=== PATIENT | female | born 1945 | race Caucasian/White ===

== ENCOUNTER 2018-07-28 07:59 | Day surgery (SDC) | payer MEDICARE, OTHER ==
[~2018-07-28] VITALS: Ht 165.1 cm; Wt 80.0 kg
[~2018-07-28 07:59] MED LIST: LACT1CAP35 PO; MULT1TAB60 PO
[2018-07-28] MEDS ORDERED: BUPIVACAINE/PF-EPI 0.5% 1:200K ONE (08:15)
[2018-07-28] MEDS ORDERED: ISOSULFAN BLUE 10 MG/ML, 5ML IV ONE (08:15)
[2018-07-28] MEDS ORDERED: SODIUM BICARBONATE 4.0%, 5ML ONE (09:05)
[2018-07-28] MEDS ORDERED: LIDOCAINE 1%, 20ML ONE (09:05)
[2018-07-28] MEDS ORDERED: LIDOCAINE 1%-EPI 1:100K, 20ML ONE (09:05)
[2018-07-28] MEDS ORDERED: FENTANYL PF 250 MCG/5ML ONE (10:09)
[2018-07-28] MEDS ORDERED: NEOSTIGMINE 1 MG/ML, 10ML ONE (10:10)
[2018-07-28] MEDS ORDERED: GLYCOPYRROLATE 0.2MG/1ML, 5ML ONE (10:10)
[2018-07-28] MEDS ORDERED: DEXAMETHASONE 4 MG/ML, 1ML ONE (10:10)
[2018-07-28] MEDS ORDERED: CEFAZOLIN 1,000 MG ONE (10:10)
[2018-07-28] MEDS ORDERED: SUCCINYLCHOLINE 20 MG/ML, 10ML ONE (10:10)
[2018-07-28] MEDS ORDERED: ONDANSETRON 2MG/ML, 2ML ONE (10:10)
[2018-07-28] MEDS ORDERED: ROCURONIUM 10MG/ML,5ML ONE (10:10)
[2018-07-28] MEDS ORDERED: PROPOFOL 10 MG/ML, 20ML ONE (10:10)
[2018-07-28] MEDS ORDERED: LACTATED RINGERS 1,000 ML IV SCH (10:18)
[2018-07-28 10:21] VITALS: BP 152/86
[2018-07-28] MEDS ORDERED: ACETAMINOPHEN 500 MG TABLET PO ONE (10:30)
[2018-07-28] MEDS ORDERED: GABAPENTIN 300 MG CAPSULE PO ONE (10:30)
[2018-07-28] MEDS ORDERED: ONDANSETRON ODT 8 MG PO ONE (10:30)
[2018-07-28] MEDS ORDERED: SCOPOLAMINE PATCH, 1.5MG PATCH.TD72 TD ONE (10:30)
[2018-07-28] MEDS ORDERED: FENTANYL PF 100 MCG/2ML IV PRN (11:30)
[2018-07-28] MEDS ORDERED: OXYcodone 5 MG/5 ML ORAL.SOL UDC PO PRN (11:30)
[2018-07-28] MEDS ORDERED: HYDROmorphone 1 MG/ML, 1ML AMP IVPush PRN (11:30)
[2018-07-28] MEDS ORDERED: ONDANSETRON 2MG/ML, 2ML IV PRN (11:30)
[2018-07-28] MEDS ORDERED: PROMETHAZINE 25 MG/ML, 1ML IV PRN (11:30)
[2018-07-28] MEDS ORDERED: ONDANSETRON ODT 8 MG PO PRN (11:30)
[2018-07-28] MEDS ORDERED: EPHEDRINE 50 MG/ML, 1ML ONE (15:14)
== END 2018-07-28 15:55 | disposition home or self-care (01) ==
LOC: CFH 07:59 → EDSTATUS 11:30 → OUT 15:55
PROVIDERS: ATTEND Surgery
DX: C50.911 Malignant neoplasm of unspecified site of right female breast (principal); R59.1 Generalized enlarged lymph nodes; F32.9 Major depressive disorder, single episode, unspecified; Z98.890 Other specified postprocedural states; Z72.89 Other problems related to lifestyle; Z87.891 Personal history of nicotine dependence; Z88.5 Allergy status to narcotic agent
CPT/HCPCS: 19285; 19301; 38525; 38792; 77065; 88305; 88307; 88329; 88333; 93005; A9541; J0330; J0690; J1100; J2405; J2704; J2710; J3010; J3490; J7120; Q0162

== ENCOUNTER → 2018-08-11 | Outpatient (CLI) | payer MEDICARE, OTHER | END | disposition home or self-care (01) | LOC: ROC 07:05 | PROVIDERS: ATTEND Radiology Radiation Oncology | DX: C50.911 Malignant neoplasm of unspecified site of right female breast (principal) | CPT/HCPCS: 99214; G0463 ==

== ENCOUNTER 2018-10-25 09:15 | Outpatient (CLI) | payer MEDICARE, OTHER ==
[2018-10-25 13:03] LABS: CHLORIDE 106 mmol/L (98-107)
[2018-10-25 13:08] LABS: ANION GAP 7 mmol/L (5-15); CALCIUM 9.2 mg/dL (8.5-10.1); CREATININE 0.87 mg/dL (0.55-1.02)
== END 2018-10-25 23:59 | disposition home or self-care (01) ==
LOC: CFH 09:15
PROVIDERS: ATTEND Internal Medicine Hematology & Oncology
DX: Z13.820 Encounter for screening for osteoporosis (principal); C50.811 Malignant neoplasm of overlapping sites of right female breast; E55.9 Vitamin D deficiency, unspecified; R79.89 Other specified abnormal findings of blood chemistry
CPT/HCPCS: 36415; 77080; 80048; 82306; 83735

== ENCOUNTER → 2019-06-07 | Outpatient (CLI) | payer MEDICARE, OTHER | END | disposition home or self-care (01) | LOC: CFH 11:43 | PROVIDERS: ATTEND Internal Medicine Hematology & Oncology | DX: C50.411 Malignant neoplasm of upper-outer quadrant of right female breast (principal); N64.89 Other specified disorders of breast | CPT/HCPCS: 77066; G0279 ==

== ENCOUNTER → 2020-06-27 | Outpatient (CLI) | payer MEDICARE, OTHER ==
[~2020-06-27] MED LIST changes: +MULT-449 PO; -MULT1TAB60 PO
== END | disposition home or self-care (01) ==
LOC: CFH 09:17
PROVIDERS: ATTEND Internal Medicine Hematology & Oncology
DX: C50.411 Malignant neoplasm of upper-outer quadrant of right female breast (principal)
CPT/HCPCS: 77062; 77066; G0279